=== PATIENT | male | born 1960 | race Two or more races ===

== ENCOUNTER 2020-10-17 11:13 | Inpatient (IN) | payer BC, MEDICAID, OTHER ==
[~2020-10-17] VITALS: Ht 167.6 cm; Wt 75.9 kg
[2020-10-17] MEDS ORDERED: DexAMETHasone SOD PHOS 10MG/1ML VIAL INJ IV ONE (13:30)
[2020-10-17] MEDS ORDERED: SODIUM CHLORIDE 0.9% 1,000 ML IVB ONE (13:30)
[2020-10-17] MEDS ORDERED: ZINC SULFATE 220mg CAP or TAB PO ONE (13:30)
[2020-10-17] MEDS ORDERED: ASCORBIC ACID 500 MG TAB PO ONE (13:30)
[2020-10-17] MEDS ORDERED: AZITHROMYCIN 500MG/ 250ML 250 ML IV ONE (13:30)
[2020-10-17 14:08] LABS: Basophils # (auto) 0 10 ^3/uL (0-0.2); Basophils % (auto) 0.1 % (0.0-2.0); Eosinophils # (auto) 0 10 ^3/uL (0-0.8); Eosinophils % (auto) 0.4 % (0.0-7.0); Hematocrit 40.3 % (41.0-53.0); Hemoglobin 14.5 g/dL (13.5-17.5); Lymphocytes # (auto) 0.5 10 ^3/uL (0.4-5.4); Lymphocytes % (auto) 7.4 % (10.0-50.0); Mean Corpuscular Hemoglobin 31.5 pg (28.0-32.0); Mean Corpuscular Hgb Conc. 35.9 g/dL (32.0-36.0); Mean Corpuscular Volume 87.6 fL (80.0-100.0); Monocytes # (auto) 0.5 10 ^3/uL (0-1.3); Neutrophils # (auto) 5.5 10 ^3/uL (1.6-8.6); Neutrophils % (auto) 84.1 % (37.0-80.0); Platelet Count (auto) 299 10^3/uL (140-450); Red Cell Distribution Width 13.6 % (11.8-14.3); White Blood Cell 6.5 10^3/uL (4.4-10.8)
[2020-10-17 14:22] LABS: INR 1.05 (0.9-1.15); Partial Thromboplastin Time 29.2 sec (23.0-31.2)
[2020-10-17 14:27] LABS: Albumin 2.6 g/dL (3.4-5.0); Anion Gap 8 (5-15); Blood Urea Nitrogen 8 mg/dL (7-18); Calcium 8.6 mg/dL (8.5-10.1); Carbon Dioxide 22 mmol/L (21-32); Chloride 102 mmol/L (98-107); Glucose 94 mg/dL (74-106); Potassium 4.3 mmol/L (3.5-5.1); Sodium 132 mmol/L (136-145)
[2020-10-17 14:39] LABS: Alanine Aminotransferase 116 U/L (16-61); Alkaline Phosphatase 162 U/L (45-117); Aspartate Aminotransferase 41 U/L (15-37); BUN/Creatinine Ratio 10.8; Bilirubin, Total 0.9 mg/dL (0.2-1.0); GFR African American 140 mL/min; GFR Non-African American 115 mL/min; Total Protein 7.3 g/dL (6.4-8.2)
[2020-10-17] MEDS ORDERED: ACETAMINOPHEN 500 MG TAB PO PRN (18:30)
[2020-10-17] MEDS ORDERED: ONDANSETRON HCL 4 MG/2 ML VIAL IV PRN (18:30)
[2020-10-17] MEDS ORDERED: NITROGLYCERIN 0.4 MG SL TAB SL PRN (18:30)
[2020-10-17] MEDS ORDERED: MORPHINE SULF INJ 2 MG/ML SYRINGE 1ML IV PRN ×2 (18:30)
[2020-10-17] MEDS ORDERED: REMDESIVIR PER PHARMACY 0 ML IV SCH (18:30)
[2020-10-17] MEDS ORDERED: HYDROcodone-ACET 5/325MG TAB PO PRN (18:30)
[2020-10-17] MEDS: cefTRIAXone 1GM/50ML D5W 50 ML IV SCH ×2 (19:00→19:57)
[2020-10-17] MEDS: CHOLECALCIFEROL (VITD3) 2,000 UNIT CAP PO SCH (19:57)
[2020-10-17] MEDS: ENOXAPARIN SOD 40 MG/0.4 ML SYRINGE SC SCH (19:58)
[2020-10-17] MEDS ORDERED: REMDESIVIR 200 MG in NS 210ml LOADING DOSE ADULT IV ONE (20:00)
[2020-10-17 20:25] LABS: Magnesium 2.3 mg/dL (1.6-2.6)
[2020-10-17 20:34] LABS: CRP High Sensitivity 18.9 mg/dL (< 0.3)
[2020-10-17] MEDS: BUDESONIDE (INHALATION) 180 MCG IH IN SCH (22:00)
[2020-10-17] MEDS ORDERED: BUDESONIDE (INHALATION) 0.5 MG/2 ML NEB NEB SCH (22:00)
[2020-10-18 04:41] LABS: Basophils # (auto) 0 10 ^3/uL (0-0.2); Basophils % (auto) 0.1 % (0.0-2.0); Eosinophils # (auto) 0 10 ^3/uL (0-0.8); Hematocrit 39.3 % (41.0-53.0); Hemoglobin 13.9 g/dL (13.5-17.5); Lymphocytes # (auto) 0.6 10 ^3/uL (0.4-5.4); Lymphocytes % (auto) 20.6 % (10.0-50.0); Mean Corpuscular Hemoglobin 31.2 pg (28.0-32.0); Mean Corpuscular Hgb Conc. 35.4 g/dL (32.0-36.0); Monocytes # (auto) 0.2 10 ^3/uL (0-1.3); Monocytes % (auto) 7.5 % (0.0-12.0); Neutrophils % (auto) 71.8 % (37.0-80.0); Nucleated Red Blood Cells % 0.4 %; Platelet Count (auto) 295 10^3/uL (140-450); Red Blood Cells 4.47 10^6/uL (4.5-5.90); Red Cell Distribution Width 13.7 % (11.8-14.3); White Blood Cell 2.8 10^3/uL (4.4-10.8)
[2020-10-18 04:56] LABS: Potassium 4.2 mmol/L (3.5-5.1)
[2020-10-18 05:02] LABS: Albumin 2.2 g/dL (3.4-5.0); Bilirubin, Total 0.4 mg/dL (0.2-1.0); Calcium 8.4 mg/dL (8.5-10.1); Total Protein 6.8 g/dL (6.4-8.2)
[2020-10-18] MEDS: FAMOTIDINE 20 MG TAB PO SCH (09:28)
[2020-10-18] MEDS: ASCORBIC ACID 1,000 MG TAB PO SCH (09:28)
[2020-10-18] MEDS: CHOLECALCIFEROL (VITD3) 2,000 UNIT CAP PO SCH (09:28)
[2020-10-18] MEDS: AZITHROMYCIN 500MG/ 250ML 250 ML IV SCH (09:28)
[2020-10-18] MEDS: ENOXAPARIN SOD 40 MG/0.4 ML SYRINGE SC SCH ×2 (09:28→21:34)
[2020-10-18] MEDS: ZINC SULFATE 220mg CAP or TAB PO SCH (09:29)
[2020-10-18] MEDS: BUDESONIDE (INHALATION) 180 MCG IH IN SCH ×2 (12:13→21:34)
[2020-10-18] MEDS: REMDESIVIR 100 MG in SODIUM CHL 0.9% 250 ML IV SCH (15:50)
[2020-10-19] VITALS: BP 106/67
[2020-10-19 06:22] LABS: Basophils # (auto) 0 10 ^3/uL (0-0.2); Eosinophils # (auto) 0 10 ^3/uL (0-0.8); Eosinophils % (auto) 0.2 % (0.0-7.0); Hematocrit 37.7 % (41.0-53.0); Hemoglobin 13.2 g/dL (13.5-17.5); Lymphocytes # (auto) 0.9 10 ^3/uL (0.4-5.4); Lymphocytes % (auto) 10.8 % (10.0-50.0); Mean Corpuscular Hgb Conc. 35.1 g/dL (32.0-36.0); Mean Corpuscular Volume 88.3 fL (80.0-100.0); Monocytes # (auto) 0.5 10 ^3/uL (0-1.3); Monocytes % (auto) 6.6 % (0.0-12.0); Neutrophils # (auto) 6.8 10 ^3/uL (1.6-8.6); Neutrophils % (auto) 82.4 % (37.0-80.0); Platelet Count (auto) 308 10^3/uL (140-450); Red Blood Cells 4.27 10^6/uL (4.5-5.90); Red Cell Distribution Width 13.6 % (11.8-14.3); White Blood Cell 8.2 10^3/uL (4.4-10.8)
[2020-10-19 06:40] LABS: Potassium 4.1 mmol/L (3.5-5.1)
[2020-10-19 06:47] LABS: Albumin 2.1 g/dL (3.4-5.0); BUN/Creatinine Ratio 23.4; Bilirubin, Total 0.4 mg/dL (0.2-1.0); Calcium 8.1 mg/dL (8.5-10.1); Total Protein 6.2 g/dL (6.4-8.2)
[2020-10-19 08:00] VITALS: BP 107/64
[2020-10-19] MEDS: cefTRIAXone 1GM/50ML D5W 50 ML IV SCH (08:43)
[2020-10-19] MEDS: FAMOTIDINE 20 MG TAB PO SCH (08:45)
[2020-10-19] MEDS: ENOXAPARIN SOD 40 MG/0.4 ML SYRINGE SC SCH ×2 (08:46→21:23)
[2020-10-19] MEDS: CHOLECALCIFEROL (VITD3) 2,000 UNIT CAP PO SCH (08:46)
[2020-10-19] MEDS: ASCORBIC ACID 1,000 MG TAB PO SCH (08:46)
[2020-10-19] MEDS: ZINC SULFATE 220mg CAP or TAB PO SCH (08:46)
[2020-10-19] MEDS: BUDESONIDE (INHALATION) 180 MCG IH IN SCH ×2 (10:00→18:49)
[2020-10-19] MEDS: AZITHROMYCIN 500MG/ 250ML 250 ML IV SCH (10:42)
[2020-10-19] MEDS ORDERED: CHOLECALCIFEROL (VITD3) 2,000 UNIT CAP PO ONE (14:00)
[2020-10-19 14:04] VITALS: BP 104/65
[2020-10-19 14:19] VITALS: BP 107/67
[2020-10-19 16:00] VITALS: BP 107/65
[2020-10-19 16:06] VITALS: BP 118/68
[2020-10-19] MEDS: REMDESIVIR 100 MG in SODIUM CHL 0.9% 250 ML IV SCH (16:37)
[2020-10-19] MEDS: BACLOFEN 10 MG TAB PO PRN (16:47)
[2020-10-19] MEDS: ALBUTEROL SULF HFA 90MCG INH 200DOSE IN PRN (20:41)
[2020-10-20] VITALS: BP 94/65
[2020-10-20] MEDS: BUDESONIDE (INHALATION) 180 MCG IH IN SCH (06:54)
[2020-10-20 08:00] VITALS: BP 92/58
[2020-10-20] MEDS: ALBUTEROL SULF HFA 90MCG INH 200DOSE IN PRN (08:02)
[2020-10-20] MEDS: cefTRIAXone 1GM/50ML D5W 50 ML IV SCH (09:28)
[2020-10-20] MEDS: FAMOTIDINE 20 MG TAB PO SCH (09:28)
[2020-10-20] MEDS: ZINC SULFATE 220mg CAP or TAB PO SCH (09:28)
[2020-10-20] MEDS: AZITHROMYCIN 500MG/ 250ML 250 ML IV SCH (09:28)
[2020-10-20] MEDS: ASCORBIC ACID 1,000 MG TAB PO SCH (09:29)
[2020-10-20] MEDS: ENOXAPARIN SOD 40 MG/0.4 ML SYRINGE SC SCH ×2 (09:29→21:12)
[2020-10-20] MEDS: CHOLECALCIFEROL (VITD3) 2,000 UNIT CAP PO SCH (09:29)
[2020-10-20] MEDS: BACLOFEN 10 MG TAB PO PRN (09:30)
[2020-10-20 10:13] LABS: Albumin 2.5 g/dL (3.4-5.0); BUN/Creatinine Ratio 19.7; Calcium 8.1 mg/dL (8.5-10.1)
[2020-10-20 10:15] LABS: Bilirubin, Total 0.3 mg/dL (0.2-1.0); Total Protein 6.8 g/dL (6.4-8.2)
[2020-10-20] MEDS: REMDESIVIR 100 MG in SODIUM CHL 0.9% 250 ML IV SCH (15:30)
[2020-10-20 16:00] VITALS: BP 103/70
[2020-10-21] VITALS: BP 102/61
[2020-10-21] MEDS: BUDESONIDE (INHALATION) 180 MCG IH IN SCH ×2 (06:41→21:16)
[2020-10-21] MEDS: ALBUTEROL SULF HFA 90MCG INH 200DOSE IN PRN ×2 (07:25→21:16)
[2020-10-21 08:00] VITALS: BP 95/59
[2020-10-21 08:23] LABS: Albumin 2.5 g/dL (3.4-5.0); BUN/Creatinine Ratio 17.6; Bilirubin, Total 0.3 mg/dL (0.2-1.0); Calcium 8.9 mg/dL (8.5-10.1); Potassium 4.5 mmol/L (3.5-5.1)
[2020-10-21] MEDS: AZITHROMYCIN 500MG/ 250ML 250 ML IV SCH (09:48)
[2020-10-21] MEDS: ZINC SULFATE 220mg CAP or TAB PO SCH (09:48)
[2020-10-21] MEDS: cefTRIAXone 1GM/50ML D5W 50 ML IV SCH (09:48)
[2020-10-21] MEDS: FAMOTIDINE 20 MG TAB PO SCH (09:49)
[2020-10-21] MEDS: ASCORBIC ACID 1,000 MG TAB PO SCH (09:49)
[2020-10-21] MEDS: CHOLECALCIFEROL (VITD3) 2,000 UNIT CAP PO SCH (09:49)
[2020-10-21] MEDS: ENOXAPARIN SOD 40 MG/0.4 ML SYRINGE SC SCH (09:49)
[2020-10-21 15:40] VITALS: BP 103/59
[2020-10-21] MEDS: REMDESIVIR 100 MG in SODIUM CHL 0.9% 250 ML IV SCH (15:44)
[2020-10-21 15:55] VITALS: BP 100/65
[2020-10-21 16:00] VITALS: BP 99/67
[2020-10-21 16:40] VITALS: BP 96/64
[2020-10-22] VITALS: BP 100/68
[2020-10-22] MEDS: ENOXAPARIN SOD 40 MG/0.4 ML SYRINGE SC SCH ×2 (00:12→10:11)
[2020-10-22] MEDS ORDERED: TEMAZEPAM 15 MG CAP PO ONE (00:45)
[2020-10-22 07:35] LABS: Potassium 4.3 mmol/L (3.5-5.1)
[2020-10-22 07:42] LABS: Albumin 2.5 g/dL (3.4-5.0); BUN/Creatinine Ratio 13.2; Bilirubin, Total 0.3 mg/dL (0.2-1.0); Calcium 8.7 mg/dL (8.5-10.1); Total Protein 6.8 g/dL (6.4-8.2)
[2020-10-22 08:00] VITALS: BP 88/58
[2020-10-22] MEDS: cefTRIAXone 1GM/50ML D5W 50 ML IV SCH (09:23)
[2020-10-22] MEDS: BUDESONIDE (INHALATION) 180 MCG IH IN SCH (10:00)
[2020-10-22] MEDS: CHOLECALCIFEROL (VITD3) 2,000 UNIT CAP PO SCH (10:11)
[2020-10-22] MEDS: ZINC SULFATE 220mg CAP or TAB PO SCH (10:11)
[2020-10-22] MEDS: ASCORBIC ACID 1,000 MG TAB PO SCH (10:11)
[2020-10-22] MEDS: FAMOTIDINE 20 MG TAB PO SCH (10:11)
[2020-10-22 10:12] VITALS: BP 90/69
[2020-10-22] MEDS: AZITHROMYCIN 500MG/ 250ML 250 ML IV SCH (11:57)
[2020-10-22 16:20] VITALS: BP 102/65
[2020-10-22 16:31] VITALS: BP 100/70
[2020-10-22] MEDS: ALBUTEROL SULF HFA 90MCG INH 200DOSE IN PRN (17:37)
== END 2020-10-22 20:40 | disposition home or self-care (01) | DRG 720 ==
LOC: ER 11:13 → TELE 11:14 → TELE-WESTW 10-18 18:18
PROVIDERS: ADMIT Nurse Practitioner Acute Care; ATTEND Internal Medicine
PROC: XW033E5 Introduction of Remdesivir Anti-infective into Peripheral Vein, Percutaneous Approach, New Technology Group 5 (ICD-10-PCS; 2020-10-17)
PROC: XW13325 Transfusion of Convalescent Plasma (Nonautologous) into Peripheral Vein, Percutaneous Approach, New Technology Group 5 (ICD-10-PCS; principal; 2020-10-19)
DX: A41.89 Other specified sepsis (principal); U07.1 COVID-19; J96.01 Acute respiratory failure with hypoxia; D68.59 Other primary thrombophilia; E87.1 Hypo-osmolality and hyponatremia; Z79.82 Long term (current) use of aspirin; Z82.49 Family history of ischemic heart disease and other diseases of the circulatory system; Z83.3 Family history of diabetes mellitus; R79.89 Other specified abnormal findings of blood chemistry; E44.0 Moderate protein-calorie malnutrition
CPT/HCPCS: 36415; 71045; 80053; 82306; 82728; 83605; 83615; 83735; 84484; 85025; 85379; 85610; 85730; 86141; 86850; 86900; 86901; 87040; 87426; 87804; 94640; 96365; 96366; 96375; G0378; J0696; J1100